=== PATIENT | female | born 1960 | race Caucasian/White ===

== ENCOUNTER → 2017-10-26 10:40 | Outpatient (CLI) | payer OTHER, SELFPAY ==
[2017-10-26 10:57] LABS: Add Manual Diff / Slide Review NO; Basophils Percent Auto 0.8 % (0-2); Eosinophils Percent Auto 1.9 % (2-4); Hemoglobin 13.6 g/dL (12.0-16.0); Lymphocytes Percent Auto 31.5 % (25-40); Mean Corpuscular HGB Conc 33.2 % (30-36); Mean Corpuscular Hemoglobin 30.1 PG (26-34); Mean Corpuscular Volume 90.7 fL (80-100); Monocytes Percent Auto 7.6 % (3-14); Neutrophils Absolute Auto 2900 /uL (3000-5900); Neutrophils Percent Auto 58.2 % (50-75); Platelet Count 238 X10^3/uL (150-400); Red Blood Cell Count 4.52 X10^6/uL (4.0-5.2); Red Cell Distribution Width 13.5 % (11.6-14.8); White Blood Cell Count 4.9 X10^3/uL (4.5-11.0)
[2017-10-26 11:39] LABS: Alanine Aminotransferase 27 IU/L (9-52); Albumin 4.2 g/dL (3.5-5.0); Albumin Globulin Ratio 1.5 (1.0-2.8); Alkaline Phosphatase 64 U/L (38-126); Aspartate Aminotransferase 19 IU/L (14-36); BUN Creatinine Ratio 21.7 (6-22); Bilirubin Total 0.7 mg/dL (0.2-1.3); Blood Urea Nitrogen 13 mg/dL (7-17); Calcium 9.4 mg/dL (8.4-10.2); Carbon Dioxide 29 mmol/L (22-32); Chloride 104 mmol/L (98-107); Cholesterol 216 mg/dL (140-199); Estimated Glomerular Filt Rate > 60.0 mL/min (>60); Globulin 2.8 g/dL (1.7-4.1); Glucose 101 mg/dL (70-100); HDL Cholesterol 64 mg/dL (40-60); HEMOLYSIS 16 (0-50); LDL Cholesterol Calculated 136 mg/dL (<100); Potassium 5.1 mmol/L (3.4-5.1); Sodium 142 mmol/L (137-145); Triglycerides 80 mg/dL (35-150)
[2017-10-26 12:09] LABS: TSH w/ Reflex to FT4 1.38 uIU/mL (0.47-4.68)
== END ==
PROVIDERS: Family Provider Family Medicine; PCP Family Medicine; Visit Provider Family Medicine
DX: Z00.00 Encounter for general adult medical examination without abnormal findings (principal)
CPT/HCPCS: 36415; 80053; 80061; 84443; 85025

== ENCOUNTER → 2017-12-06 11:31 | Outpatient (CLI) | payer OTHER, SELFPAY ==
--- NOTE | 2017-12-06 | DI.MG.S_ITS ---
BILATERAL DIGITAL SCREENING MAMMOGRAM 3D/2D WITH CAD: 12/06/2017 CLINICAL: Routine screening. Comparison is made to exams dated: 10/10/2012 mammogram, 04/20/2012 mammogram, and 10/07/2008 mammogram - [facility]. There are scattered fibroglandular elements in both breasts. Current study was also evaluated with a Computer Aided Detection (CAD) system. There is a focal asymmetry in the right breast central to the nipple anterior depth. There is possible architectural distortion associated with the focal asymmetry. No other significant masses, calcifications, or other findings are seen in either breast. IMPRESSION: INCOMPLETE: NEEDS ADDITIONAL IMAGING EVALUATION The focal asymmetry with possible architectual distortion in the right breast is indeterminate. Additional views with possible ultrasound are recommended. This exam was interpreted at Station ID: [id number]. NOTE: For mammograms, a report in lay terms will be sent to the patient. Approximately 15% of breast malignancies will not be visualized mammographically. In the management of a palpable breast mass, a negative mammogram must not discourage biopsy of a clinically suspicious lesion. Electronically Signed By: Jordan Mariano M.D. ecl/:12/06/2017 19:09:43 letter sent: Additional Imaging Needed ACR BI-RADS Category 0: Incomplete 3340F
== END ==
PROVIDERS: Family Provider Family Medicine; PCP Family Medicine; Visit Provider Family Medicine
DX: Z12.31 Encounter for screening mammogram for malignant neoplasm of breast (principal)
CPT/HCPCS: 77063; 77067

== ENCOUNTER → 2018-01-04 14:23 | Outpatient (CLI) | payer OTHER, SELFPAY ==
--- NOTE | 2018-01-04 14:24 | DI.US.S_ITS ---
ULTRASOUND OF RIGHT BREAST: 01/04/2018 CLINICAL: Patient returns today to evaluate an asymmetry in the right breast. Comparison is made to exams dated: 01/04/2018 mammogram, 12/06/2017 mammogram, 10/10/2012 mammogram, and 04/20/2012 mammogram - [facility]. Real-time and Doppler ultrasound of the right breast were performed. Salcedo scale images of the real-time examination were reviewed. Targeted ultrasound demonstrates a 1.2 x 1.0 x 0.8 cm complex cyst or complex mass in the right breast at 6 o'clock position retroareolar depth with peripheral hypoehoic possibly fluid component and central soft tissue component. There is no vascularity on Doppler imaging. This correlates with the abnormality found on diagnostic mammography. IMPRESSION: SUSPICIOUS OF MALIGNANCY - FOLLOW-UP RECOMMENDED 1.2 cm complex cyst/complex mass in the right breast at 6 o'clock position retroareolar depth is at low suspicion for malignancy. An ultrasound guided biopsy is recommended. These results and recommendations were discussed with the patient at the time of the exam by [facility] Radiologist Dr. Leon Huertas in person. This exam was interpreted at Station ID: [id number]. Electronically Signed By: Jordan Mariano M.D. ecl/:01/05/2018 00:51:05 letter sent: Biopsy Required Ultrasound BI-RADS: 4a Suspicious abnormality - low suspicion for malignancy
--- NOTE | 2018-01-04 14:24 | DI.MG.S_ITS ---
UNILATERAL RIGHT DIGITAL DIAGNOSTIC MAMMOGRAM 3D/2D WITH ADDITIONAL VIEWS: 01/04/2018 CLINICAL: Additional evaluation requested from prior study. Comparison is made to exams dated: 12/06/2017 mammogram, 10/10/2012 mammogram, and 04/20/2012 mammogram - [facility]. There are scattered fibroglandular elements in the right breast. Previously identified approximately 1.0 cm focal asymmetry in the right breast central to the nipple anterior depth on comparison screening mammograms persists with additional views. No other significant masses, calcifications, or other findings are seen in the breast. IMPRESSION: INCOMPLETE: NEEDS ADDITIONAL IMAGING EVALUATION Previously identified focal asymmetry in the right breast central to the nipple anterior depth persists with additional views. A targeted ultrasound is recommended for further evaluation, and will be performed immediately following this exam. This exam was interpreted at Station ID: [id number]. NOTE: For mammograms, a report in lay terms will be sent to the patient. Approximately 15% of breast malignancies will not be visualized mammographically. In the management of a palpable breast mass, a negative mammogram must not discourage biopsy of a clinically suspicious lesion. Electronically Signed By: Jordan Mariano M.D. ecl/:01/05/2018 00:46:09 letter sent: Additional Imaging Needed ACR BI-RADS Category 0: Incomplete 3340F
== END ==
PROVIDERS: PCP Family Medicine; Visit Provider Family Medicine
DX: R92.8 Other abnormal and inconclusive findings on diagnostic imaging of breast (principal); N63.10 Unspecified lump in the right breast, unspecified quadrant
CPT/HCPCS: 76642; 77065; G0279

== ENCOUNTER → 2018-01-23 14:20 | Outpatient (CLI) | payer OTHER, SELFPAY ==
--- NOTE | 2018-01-23 | PATH_ITS ---
Note [facility] Accession Number: [id number] TESTS RESULT FLAG UNITS REF RANGE LAB Clinician Provided Cytology Information No. of containers..01 ThinPrep Vial 01 RIGHT BREAST CYST DIAGNOSIS: 02 RIGHT BREAST CYST NEGATIVE FOR MALIGNANT CELLS. IBNUMEROUS FOAMY HISTIOCYTES AND RARE BENIGN EPITHELIAL CELLS. Pathologist ICD10: 02 N60.01 02 Héctor Bynum MD, Pathologist NPI- [id number] Cris Gee, Development Mechanic ([facility]) 01 0.1 CC, BROWN, CLOUDY /LCS FLAG LEGEND: L-Low Normal,H-High Normal,LL-Alert Low,HH-Alert High <-Panic Low,>-Panic High,A-Abnormal,AA-Critical Abnormal Performed at: 01 =Z [facility] [address], [place] [address] Nitin Shea MD, 02 LCLWA [facility] [address] [place] [id number] James Wu MD, Performed at: 01 [facility] [address], [place], [place] [id number] MD Nitin Shea MD Phone: [phone]
--- NOTE | 2018-01-23 16:06 | DI.US.S_ITS ---
ULTRASOUND GUIDED ASPIRATION RIGHT BREAST WITH POST ULTRASOUND IMAGIN01/23/2018 CLINICAL: Cyst aspiration right breast. Correlation is made to exams dated: 01/04/2018 ultrasound, 01/04/2018 mammogram, and 12/06/2017 mammogram - [facility]. An aspiration was performed for the concerning 0.6 cm x 0.7 cm x 0.8 cm circumscribed oval cyst located in the right breast at 10 o'clock in the retroareolar region. This was described on the previous ultrasound report. The skin was prepped in the usual manner. Local anesthetic was administered to the access site. The abnormality was approached from the lateral aspect. A 25 gauge needle was percutaneously placed into the abnormality under ultrasound guidance. Once the needle was documented to be in the correct location, opaque brown fluid was aspirated. A skin adhesive was applied to the access site. Post procedure ultrasound imaging demonstrates the abnormality to be no longer present. The aspirated fluid was sent for cytological analysis. IMPRESSION: ASPIRATION BENIGN Aspiration of the 0.6 cm x 0.7 cm x 0.8 cm cyst in the right breast in the retroareolar region was successful. Post ultrasound imaging revealed the abnormality to be no longer present. The pathology demonstrates foamy histiocytes and rare epithelial cells. Return to annual mammogram screening schedule is recommended. This exam was interpreted at Station ID: [id number]. emma Jakc M.D., M.D./:01/25/2018 17:07:58
== END ==
PROVIDERS: PCP Family Medicine; Visit Provider Family Medicine
DX: N60.01 Solitary cyst of right breast (principal)
CPT/HCPCS: 10022; 76942

== ENCOUNTER → 2018-04-16 10:06 | Outpatient (CLI) | payer OTHER, SELFPAY ==
[2018-04-16 11:04] LABS: Mean Corpuscular HGB Conc 33.4 % (30-36); Mean Corpuscular Hemoglobin 30.4 PG (26-34); Mean Corpuscular Volume 90.9 fL (80-100); Platelet Count 266 X10^3/uL (150-400); Red Blood Cell Count 4.62 X10^6/uL (4.0-5.2); Red Cell Distribution Width 13.7 % (11.6-14.8); White Blood Cell Count 4.8 X10^3/uL (4.5-11.0)
[2018-04-16 11:26] LABS: Alanine Aminotransferase 27 IU/L (9-52); Albumin 4.4 g/dL (3.5-5.0); Albumin Globulin Ratio 1.6 (1.0-2.8); Alkaline Phosphatase 61 U/L (38-126); Aspartate Aminotransferase 22 IU/L (14-36); BUN Creatinine Ratio 26.7 (6-22); Bilirubin Total 0.4 mg/dL (0.2-1.3); Blood Urea Nitrogen 16 mg/dL (7-17); Calcium 9.4 mg/dL (8.4-10.2); Carbon Dioxide 28 mmol/L (22-32); Chloride 103 mmol/L (98-107); Estimated Glomerular Filt Rate > 60.0 mL/min (>60); Globulin 2.8 g/dL (1.7-4.1); Glucose 85 mg/dL (70-100); HEMOLYSIS < 15 (0-50); Potassium 4.9 mmol/L (3.4-5.1); Sodium 144 mmol/L (137-145); Total Protein 7.2 g/dL (6.3-8.2)
[2018-04-16 13:59] LABS: Neutrophils Absolute Manual 2640 /uL (3000-5900); Total Cells Counted 100
[2018-04-16 14:00] LABS: Anisocytosis 1+
== END ==
PROVIDERS: PCP Family Medicine; Visit Provider Family Medicine
DX: R10.9 Unspecified abdominal pain (principal)
CPT/HCPCS: 36415; 80053; 85025

== ENCOUNTER → 2018-04-20 08:40 | Outpatient (CLI) | payer OTHER, SELFPAY ==
--- NOTE | 2018-04-20 08:40 | DI.CT.S_ITS ---
PROCEDURE: CT KIDNEY URETER BLADDER (KUB) INDICATIONS: Left flank pain with hematuria TECHNIQUE: Noncontrast 5 mm thick sections acquired from the diaphragms to the symphysis. 5 mm thick coronal and sagittal reformats were then performed. For radiation dose reduction, the following was used: automated exposure control, adjustment of mA and/or kV according to patient size. COMPARISON: [facility], CT, KIDNEY/ URETER/BLADDER, 03/17/2017, 13:55. FINDINGS: Image quality: Excellent. Lung bases: Lung bases are clear. Heart size is normal. There is a small hiatal hernia. Urinary system: There is a small urinary stone at the left ureteropelvic junction measuring up to 6 mm with associated mild left hydronephrosis. There is minimal associated perinephric stranding. On the right, there is a punctate nonobstructing renal stone without hydronephrosis. The urinary bladder demonstrates normal wall thickness. There is a dependent stone or cluster of stones in the urinary bladder measuring up to 8 mm in aggregate dimension. Other solid organs: There are a few small hypodense foci within the liver which are too small to characterize but statistically likely represent cysts. These appear similar to the prior study. Pancreas is normal in contours. Spleen is normal in size. No adrenal nodules. Peritoneum and bowel: Unenhanced bowel loops demonstrate normal wall thickness and caliber. No evidence of appendicitis. No free fluid or air. Nodes and vessels: No retroperitoneal or mesenteric adenopathy by size criteria. Aorta and inferior vena cava are normal in caliber. Abdominal wall: No ventral hernias. Pelvis: No free pelvic fluid. The uterus is surgically absent. No inguinal hernias or adenopathy. Bones: No suspicious bony lesions. No vertebral body compression fractures. IMPRESSION: 1. Obstructing 6 mm left urinary stone at the UPJ with mild left hydronephrosis. 2. Punctate nonobstructing right renal stone. No right hydronephrosis. 3. Dependent urinary stones demonstrated in the bladder. Dictated by: Nitin Mccoy M.D. on 04/20/2018 at 9:00 Approved by: Nitin Mccoy M.D. on 04/20/2018 at 9:20
== END ==
PROVIDERS: PCP Family Medicine; Visit Provider Family Medicine
DX: N13.2 Hydronephrosis with renal and ureteral calculous obstruction (principal); N21.0 Calculus in bladder; N20.0 Calculus of kidney; R31.9 Hematuria, unspecified; R10.9 Unspecified abdominal pain
CPT/HCPCS: 74176

== ENCOUNTER → 2018-06-07 09:24 | Outpatient (CLI) | payer OTHER, SELFPAY ==
--- NOTE | 2018-06-07 | DI.CT.S_ITS ---
PROCEDURE: CT KIDNEY URETER BLADDER (KUB) INDICATIONS: LEFT LOWER QUAD PAIN TECHNIQUE: Noncontrast 5 mm thick sections acquired from the diaphragms to the symphysis. 5 mm thick coronal and sagittal reformats were then performed. For radiation dose reduction, the following was used: automated exposure control, adjustment of mA and/or kV according to patient size. COMPARISON: [facility], CT, CT KIDNEY URETER BLADDER (KUB), 04/20/2018, 8:40. [facility], CT, KIDNEY/ URETER/BLADDER, 04/20/2015, 11:39. [facility], CT, KIDNEY/ URETER/BLADDER, 03/17/2017, 13:55. FINDINGS: Image quality: Excellent. Lung bases: Lung bases are clear. Heart size is normal. A small hiatal hernia is incidentally noted. Urinary system: Bilateral nonobstructing kidney stones are seen. The largest stone on the left side measures 6 mm. The largest stone on the right measures 2 mm. Both kidneys are normal in size. No hydronephrosis or perinephric fat stranding. Both ureters appear non-dilated throughout their expected courses. Bladder wall thickness is normal; no calcified bladder stones. Other solid organs: Liver is normal in size. Gallbladder demonstrates gas containing gallstones within its lumen, as on series 2 image 28. Pancreas is normal in contours. Spleen is normal in size. No adrenal nodules. Peritoneum and bowel: Unenhanced bowel loops demonstrate normal wall thickness and caliber. No free fluid or air. Incidental note is made of a normal-appearing appendix. In this patient with this given history, scrutiny is given to the sigmoid colon. Within the sigmoid colon, minimal sigmoid diverticulosis is seen. Negative for diverticulitis. Nodes and vessels: No retroperitoneal or mesenteric adenopathy by size criteria. Aorta and inferior vena cava are normal in caliber. Atherosclerotic calcification is noted. Abdominal wall: A mild periumbilical hernia is seen, containing fat. Pelvis: No free pelvic fluid. No inguinal hernias or adenopathy. This patient is status post hysterectomy. No adnexal masses are seen. Bones: No suspicious bony lesions. No vertebral body compression fractures. IMPRESSION: Minimal sigmoid diverticulosis, without findings of diverticulitis. Nonobstructing bilateral renal stones. No ureteral stones or hydronephrosis can be seen. Incidental note is made of: Small hiatal hernia Gallstones Fat-containing periumbilical hernia Hysterectomy Dictated by: Julio Mckeon M.D. on 06/07/2018 at 9:36 Approved by: Julio Mckeon M.D. on 06/07/2018 at 9:40
== END ==
PROVIDERS: Family Provider Urology; PCP Family Medicine; Visit Provider Urology
DX: R10.32 Left lower quadrant pain (principal); N20.0 Calculus of kidney; K44.9 Diaphragmatic hernia without obstruction or gangrene; K80.80 Other cholelithiasis without obstruction; K42.9 Umbilical hernia without obstruction or gangrene
CPT/HCPCS: 74176

== ENCOUNTER → 2019-03-11 09:22 | Outpatient (CLI) | payer OTHER, SELFPAY ==
--- NOTE | 2019-03-11 09:30 | DI.CT.S_ITS ---
PROCEDURE: CT ABDOMEN PELVIS WO CON INDICATIONS: LEFT FLANK PAIN TECHNIQUE: Noncontrast 5 mm thick sections acquired from the diaphragms to the symphysis. 5 mm thick coronal and sagittal reformats were then performed. For radiation dose reduction, the following was used: automated exposure control, adjustment of mA and/or kV according to patient size. COMPARISON: CT KUB 06/07/2018, 04/20/2018, 04/20/2015. FINDINGS: Image quality: Excellent. Lung bases: Lung bases are clear. Heart size is normal. Small hiatal hernia. Urinary system: Both kidneys are normal in size. Punctate nonobstructive calculus in the mid right kidney, unchanged. Previously seen small calculus at the inferior pole of the left kidney is longer present. No hydronephrosis or perinephric fat stranding. Bilateral extra renal pelvis. Both ureters appear non-dilated throughout their expected courses. Bladder wall thickness is normal. Similar-appearing cystocele. Calcification at the posterior inferior bladder is unchanged since at least April 2018. This was more rounded in appearance on the 2014 CT. Other solid organs: Liver is normal in size. Gallbladder nondistended. Probable noncalcified gallstones. Pancreas is normal in contours. Spleen is normal in size. No adrenal nodules. Peritoneum and bowel: Unenhanced bowel loops demonstrate normal wall thickness and caliber. No free fluid or air. Nodes and vessels: No retroperitoneal or mesenteric adenopathy by size criteria. Aorta and inferior vena cava are normal in caliber. Abdominal wall: No ventral hernias. Pelvis: No free pelvic fluid. No inguinal hernias or adenopathy. Bones: No suspicious bony lesions. No vertebral body compression fractures. IMPRESSION: 1. No obstructing renal stone. 2. Previously seen small left kidney stone is no longer present. 3. Punctate nonobstructing stone in the mid right kidney. 4. Similar-appearing calcification in the bladder and cystocele. 5. Probable noncalcified gallstones. Dictated by: Luis Daniel Jauregui M.D. on 03/11/2019 at 15:04 Approved by: Luis Daniel Jauregui M.D. on 03/11/2019 at 15:13
== END ==
PROVIDERS: Family Provider Urology; PCP Family Medicine; Visit Provider Family Medicine
DX: R10.9 Unspecified abdominal pain (principal); N20.0 Calculus of kidney; N21.0 Calculus in bladder
CPT/HCPCS: 36415; 74176; 80048; 81003; 81015; 87077; 87086; 87147

== ENCOUNTER → 2019-03-11 14:09 | Outpatient (CLI) | payer OTHER, SELFPAY ==
[2019-03-11 14:59] LABS: BUN Creatinine Ratio 21.7 (6-22); Blood Urea Nitrogen 13 mg/dL (7-17); Calcium 9.4 mg/dL (8.4-10.2); Carbon Dioxide 29 mmol/L (22-32); Chloride 103 mmol/L (98-107); Estimated Glomerular Filt Rate > 60.0 mL/min (>60); Glucose 124 mg/dL (70-100); HEMOLYSIS < 15 (0-50); Sodium 141 mmol/L (137-145)
[2019-03-11 15:13] LABS: Appearance Urine UA CLEAR; Bilirubin Urine UA NEGATIVE (NEGATIVE); Color Urine UA YELLOW; Glucose Urine UA NEGATIVE (Negative); Ketones Urine UA NEGATIVE (NEGATIVE); Leukocyte Esterase Urine UA TRACE (NEGATIVE); Nitrite Urine UA NEGATIVE (Negative); Occult Blood Urine UA NEGATIVE (Negative); Protein Urine UA NEGATIVE (Negative); Specific Gravity Urine UA <=1.005 (1.000-1.035); Urobilinogen Urine UA 0.2 E.U./dL (0.2)
[2019-03-11 15:23] LABS: RBC Urine None Seen (0-5/HPF)
[2019-03-11 15:40] LABS: Bacteria Urine Occasional (0-1); Culture Indicated Urine Specimen Cultured; Squamous Epithelial Cell Urine 0-1 /HPF (0-5/HPF); WBC Urine 1-5/HPF (0-5/HPF)
== END ==
PROVIDERS: PCP Family Medicine; Visit Provider Family Medicine
DX: N20.0 Calculus of kidney (principal); N21.0 Calculus in bladder
CPT/HCPCS: 36415; 80048; 81003; 81015; 87086

== ENCOUNTER 2019-10-19 14:17 | Emergency (ER) | payer OTHER, SELFPAY ==
[2019-10-19 14:36] VITALS: BP 162/72; PULSE 63; RESP 18; TEMP 36.6; O2SAT 98; BMI 23.1
[2019-10-19 15:06] LABS: Appearance Urine UA SL CLOUDY; Bilirubin Urine UA NEGATIVE (NEGATIVE); Color Urine UA ORANGE; Glucose Urine UA TRACE g/dL (Negative); Ketones Urine UA TRACE (NEGATIVE); Leukocyte Esterase Urine UA 2+ (NEGATIVE); Nitrite Urine UA POSITIVE (Negative); Occult Blood Urine UA 3+ (Negative); Protein Urine UA 1+ (Negative); Specific Gravity Urine UA 1.025 (1.000-1.035)
[2019-10-19 15:11] LABS: Amorphous Sediment Urine 1+; Bacteria Urine Few (2-10); Mucus Urine 1+ (Negative); RBC Urine 1-5/HPF (0-5/HPF); Squamous Epithelial Cell Urine 0-1 /HPF (0-5/HPF); WBC Urine 10-30/HPF (0-5/HPF)
[2019-10-19 15:12] LABS: Culture Indicated Urine Specimen Cultured
--- NOTE | 2019-10-19 16:23 | ED.FEMALEGU ---
HPI - Female Genitourinary <ODIN Batista - Last Filed: 10/19/19 18:53> General Chief complaint: Urogenital-Female Stated complaint: states possible kidney stone and uti Time Seen by Provider: 10/19/19 16:22 Source: patient Mode of arrival: Ambulatory Limitations: no limitations History of Present Illness HPI Narrative: This is a 59-year-old female, nonsmoker, who presents to ED for an antibiotic medication for urinary symptoms. Patient reports she just completed antibiotic medication about 2 weeks ago for UTI symptoms but her symptoms has not resolved. At that time, patient appears to received Cipro. Patient reports subjective fever, chills, nausea, , left flank pain but no vomiting or hematuria. Patient reports her UTI symptoms are related to kidney stones. She has history of lithotripsy in the past. Also she reports has bladder stone. Reports unable to recall recent imaging test. Patient started taking azo old since last night which helps with her symptoms and had taken Aleve at home for pain this morning. Patient also has surgery for urine prolapse and has urologist in [place]. Unable to find recent urine test results in EMR. Last CT scan was done in March 2019. Previous urine culture indicates strep group B with Keflex at that time with good result. Related Data Previous Rx's Medication Instructions Recorded cephalexin [Keflex] 500 mg PO BID 7 Days #14 cap 10/19/19 Allergies Allergy/AdvReac Type Severity Reaction Status Date / Time amoxicillin [AMOXICILLIN] Allergy Mild RASH Verified 10/19/19 14:40 azithromycin [AZITHROMYCIN] Allergy Mild STOMACH Verified 10/19/19 14:40 PAIN hydromorphone [HYDROMORPHONE] Allergy Mild N/V Verified 10/19/19 14:40 meperidine [MEPERIDINE] Allergy Mild N/V Verified 10/19/19 14:40 nitrofurantoin Allergy Mild HEADACHE Verified 10/19/19 14:40 [From MACROBID] FLU LIKE SYMPTOMS omeprazole [OMEPRAZOLE] Allergy Mild DIARRHEA Verified 10/19/19 14:40 Review of Systems <ODIN Batista - Last Filed: 10/19/19 18:53> Review of Systems Narrative: General: See HPI HEENT: Denies sinus pain, ear pain, sore throat, difficulty swallowing, dizziness. Respiratory: Denies dyspnea, cough, wheezing, hemoptysis, sputum. Cardiovascular: Denies chest pain, palpitations, orthopnea, edema. Gastrointestinal: Denies nausea, vomiting, abdominal pain, diarrhea, constipation, melena. : See HPI Musculoskeletal: Denies weakness, joint pain or bony pain. Skin: Denies rash, skin lesions, or other. Neurologic: Denies weakness, headache, numbness, change in speech, confusion, seizures, incoordination. Psychiatric: No concerning psychosocial issues. 12-point review of systems is negative except for those stated above. Patient History <ODIN Batista - Last Filed: 10/19/19 18:53> Medical History Bladder stones (Resolved) Chicken pox (Resolved) Chlamydia (Resolved 1980) Chronic headaches (Chronic) Frequent UTI (Resolved 2009) GERD (gastroesophageal reflux disease) (Chronic 2013) Hayfever (Chronic) Kidney stones (Resolved) Malaria (Resolved 1971) Measles (Resolved) Migraines (Chronic) Mumps (Resolved) Pelvic relaxation (Resolved) RLS (restless legs syndrome) (Resolved) Rubella (Resolved) Seizures (Chronic) Surgical History Anesthesia (Resolved) History of bladder surgery (Resolved 2011) History of lithotripsy (Resolved 2007) Status post appendectomy (Resolved 1989) Status post breast reduction (Resolved 1991) Status post hysterectomy with oophorectomy (Resolved ~2008) Family History Father Heart disease Mental health problem Mother Age: 89 Osteoporosis COPD (chronic obstructive pulmonary disease) Arthritis Sister Age: 67 Heart disease Mental health disorder Grandmother Lung cancer alcohol intake frequency: a few times a week Substance Use Type: does not use Exam <ODIN Batista - Last Filed: 10/19/19 18:53> Narrative Exam Narrative: GEN: Alert, oriented x 3, well appearing and nourished, and in no acute distress. Head: Normal cephalic, atraumatic. No scalp or temporal tenderness, palpable mass or rash. EYES: Pupils are equal, round, and reactive to light and accommodation. Extraocular muscles are intact bilaterally. There is no subconjunctival hemorrhage, exudate and sclera non-icteric. ENT: Hearing grossly intact. Nose without bleeding, purulent discharge or deviation. Facial sinuses nontender to palpate. Mucous membrane moist, no mucosal lesion. Throat without erythema, tonsillar hypertrophy or exudate. Uvula in midline, airway patent. Neck: Trachea in midline. No JVD, non-tender without lymphadenopathy. No masses or thyroid megaly. Supple, non-tender and no meningeal signs. CARDIAC: Normal regular rate and rhythm without murmurs, gallops, or rubs. No chest wall tenderness. No peripheral edema, cyanosis or pallor. Capillary refill is less than 2 seconds. RESPIRATORY: Lungs are clear to auscultate bilaterally. No cough, wheezes, rales, or rhonchi. No stridor, respiratory distress, increase work of breathing, or accessary muscle used. ABD: Abdomen soft, nontender and non-distended. No guarding or rebound tenderness to palpate. Bowel sounds are normal in all 4 quadrants. There is no palpable masses or organomegaly. EXT: Full painless ROM of all extremities with no loss of sensation, strength, effusion or edema. SKIN: Warm, dry, normal color for patient. No erythema, lesions or rash over visible areas. BACK: Nontender without deformity or crepitance. Right costovertebral angle mild tenderness to palpate. NEUROLOGICAL: Alert and oriented to place, time and person. Sensation and motor function intact bilaterally. No facial droops, dysphasia. PSYCHIATRIC: Good judgement and reason, without hallucinations, abnormal affect or abnormal behaviors during the examination. Initial Vital Signs Initial Vital Signs: Vital Signs Temperature 97.9 F 10/19/19 14:36 Pulse Rate 63 10/19/19 14:36 Respiratory Rate 18 10/19/19 14:36 Blood Pressure 162/72 H 10/19/19 14:36 Pulse Oximetry 98 10/19/19 14:36 <Oli Mistry MD - Last Filed: 10/20/19 07:47> Initial Vital Signs Initial Vital Signs: Vital Signs Temperature 97.9 F 10/19/19 14:36 Pulse Rate 63 10/19/19 14:36 Respiratory Rate 18 10/19/19 14:36 Blood Pressure 162/72 H 10/19/19 14:36 Pulse Oximetry 98 10/19/19 14:36 Scores <Felipe Casey-Oras, REHAB CONSULTANT - Last Filed: 10/19/19 18:53> GCS [place] coma scale eye opening: Spontaneous Lucita coma scale verbal response: Orientated [place] coma scale motor response: Obey commands [place] coma scale total score: 15 Course <ODIN Batista - Last Filed: 10/19/19 18:53> Orders Ordered: Discontinued Medications Cefazolin Sodium (Keflex 250 Mg Prepack) 1 bottle MISC SEEINSTR ONE Stop: 10/19/19 18:24 Last Admin: 10/19/19 18:40 Dose: 1 pack Documented by: SAMEER Cephalexin HCl (Keflex) 500 mg PO NOW ONE Stop: 10/19/19 18:24 Last Admin: 10/19/19 18:40 Dose: 500 mg Documented by: SAMEER Vital Signs Vital signs: Vital Signs - 8 hr 10/19/19 14:36 10/19/19 17:57 Temperature 97.9 F Pulse Rate 63 64 Respiratory Rate 18 Blood Pressure 162/72 H Blood Pressure [Right Arm] 125/81 Pulse Oximetry 98 99 <Oli Mistry MD - Last Filed: 10/20/19 07:47> Orders Ordered: Discontinued Medications Cefazolin Sodium (Keflex 250 Mg Prepack) 1 bottle MISC SEEINSTR ONE Stop: 10/19/19 18:24 Last Admin: 10/19/19 18:40 Dose: 1 pack Documented by: SAMEER Cephalexin HCl (Keflex) 500 mg PO NOW ONE Stop: 10/19/19 18:24 Last Admin: 10/19/19 18:40 Dose: 500 mg Documented by: SAMEER Vital Signs Vital signs: Vital Signs - 8 hr 10/19/19 14:36 10/19/19 17:57 Temperature 97.9 F Pulse Rate 63 64 Respiratory Rate 18 Blood Pressure 162/72 H Blood Pressure [Right Arm] 125/81 Pulse Oximetry 98 99 MDM - Female Genitourinary <ODIN Batista - Last Filed: 10/19/19 18:53> Differential Diagnosis Differential diagnosis: Likely urinary tract infection and other (Kidney stone, obstructed kidney stone and infection) Medical Records Attestation: I reviewed the patient's medical records. Lab Data Attestation: I reviewed the patient's lab results. Result diagrams: 10/19/19 16:55 10/19/19 16:55 Labs: Lab Results 10/19/19 10/19/19 10/19/19 Range/Units 14:55 16:55 16:55 WBC 5.3 (4.5-11.0) X10^3/uL RBC 4.32 (4.0-5.2) X10^6/uL Hgb 13.2 (12.0-16.0) g/dL Hct 39.9 (36-46) % MCV 92.3 (80-100) fL MCH 30.4 (26-34) PG MCHC 33.0 (30-36) % RDW 14.2 (11.6-14.8) % Plt Count 226 (150-400) X10^3/uL Neut % (Auto) 49.0 L (50-75) % Lymph % (Auto) 39.2 (25-40) % [place] % (Auto) 9.6 (3-14) % Eos % (Auto) 1.4 L (2-4) % Baso % (Auto) 0.8 (0-2) % Neut # (Auto) 2600 (6560-3257) /uL Lymph # (Auto) 2100 (5375-1060) /uL [place] # (Auto) 500 (0-900) /uL Eos # (Auto) 100 (0-450) /uL Baso # (Auto) 0 (0-100) /uL Sodium 140 (137-145) mmol/L Potassium 4.4 (3.4-5.1) mmol/L Chloride 106 (98-107) mmol/L Carbon Dioxide 27 (22-32) mmol/L BUN 15 (7-17) mg/dL Creatinine 0.56 (0.52-1.04) mg/dL Estimated GFR > 60.0 (>60) mL/min BUN/Creatinine Ratio 26.8 H (6-22) Glucose 118 H (80-110) mg/dL Calcium 9.6 (8.4-10.2) mg/dL Urine Color [place] Urine Appearance Sl cloudy Urine pH 5.0 (4.5-8.0) Ur Specific [place] 1.025 (1.000-1.035) Urine Protein 1+ H (Negative) Urine Glucose (UA) Trace H (Negative) g/dL Urine Ketones Trace H (NEGATIVE) Urine Occult Blood 3+ H (Negative) Urine Nitrate Positive H (Negative) Urine Bilirubin Negative (NEGATIVE) Urine Urobilinogen 1.0 (0.2) E.U./dL Ur Leukocyte Esterase 2+ H (NEGATIVE) Urine RBC 1-5/hpf (0-5/HPF) Urine WBC 10-30/hpf H (0-5/HPF) Ur Squamous Epith Cells 0-1 /hpf (0-5/HPF) Amorphous Sediment 1+ Urine Bacteria Few (2-10) H (None) Urine Mucus 1+ H (Negative) Ur Culture Indicated? Specimen cultured Imaging Data CT- KUB: Radiologist's Impression: [address] [address] [address] Scan Report Signed Patient: Graciela Pierre WMR#: [id number] : 9Acct:[id number] Age/Sex: 59 / FDate of Service: 10/19/19 Loc: ED Accession Number: [id number] Procedure: CT kidney ureter bladder (KUB) Ordering Provider: Felipe Broussard PROCEDURE: CT KIDNEY URETER BLADDER (KUB) INDICATIONS: UTI, hx of stones, fever, chills, left flank pain TECHNIQUE: Noncontrast 5 mm thick sections acquired from the diaphragms to the symphysis. 5 mm thick coronal and sagittal reformats were then performed. For radiation dose reduction, the following was used: automated exposure control, adjustment of mA and/or kV according to patient size. COMPARISON: [facility], CT, CT KIDNEY URETER BLADDER (KUB), 06/07/2018, 9:32. [facility], CT, CT KIDNEY URETER BLADDER (KUB), 04/20/2018, 8:40. [facility], CT, CT ABDOMEN PELVIS WO CON, 03/11/2019, 10:23. FINDINGS: Image quality: Excellent. Lung bases: Lung bases are clear. Heart size is normal. A small hiatal hernia is incidentally noted. Urinary system: Both kidneys are normal in size. There is a nonobstructing 2 mm stone seen on the right side. No left-sided kidney stones. No hydronephrosis or perinephric fat stranding. Both ureters appear non-dilated throughout their expected courses. Bladder wall thickness is normal. Irregular bladder stone is seen, which is slightly more prominent than in 2009. A bladder stone measures up to 1 cm. Pelvic phleboliths are incidentally noted. A cystocele is seen. Other solid organs: Liver is normal in size. Gallbladder wall does not appear thickened. Pancreas is normal in contours. Spleen is normal in size. No adrenal nodules. Peritoneum and bowel: Unenhanced bowel loops demonstrate normal wall thickness and caliber. No free fluid or air. Minimal sigmoid diverticulosis is seen. No diverticulitis. Nodes and vessels: No retroperitoneal or mesenteric adenopathy by size criteria. Aorta and inferior vena cava are normal in caliber. Abdominal wall: No ventral hernias. Pelvis: No free pelvic fluid. No inguinal hernias or adenopathy. This patient is status post hysterectomy. No adnexal masses are seen. Bones: No suspicious bony lesions. No vertebral body compression fractures. IMPRESSION: No left-sided stones or hydronephrosis can be seen. Nonobstructing right-sided kidney stone. 1 cm calcified bladder stone seen. Incidental note is made of: Small hiatal hernia Minimal sigmoid diverticulosis. Hysterectomy Cystocele Dictated by: Julio Mckeon M.D. on 10/19/2019 at 16:29 Approved by: Julio Mckeon M.D. on 10/19/2019 at 16:33 MDM Narrative Medical decision making narrative: This is a 59-year-old female reports frequent UTI associated with kidney stones. Afebrile today. Patient reports subjective fever, chills, flank pain, nausea. UA indicates positive urine nitrate, urine leukocyte esterase, 3+ blood, trace ketones and glucose with protein. Urine culture is pending. Patient recently completed Cipro therapy for UTI appears to be she feels for outpatient treatment with antibiotic medication. Since patient has history of kidney stone symptoms for possible pyelonephritis, field UTI, labs and CT test were done. CT shows nonobstructing small kidney stone of 2 mm on right side with 1 cm of bladder stone she appears to be irregular and more prominent since last time. Lab tests were unremarkable without leukocytosis and normal kidney function. Mildly elevated BUN/creatinine ratio. Patient provided with 1st dose of Keflex while in ED and discharged to home with prepack and prescription to complete 7 day course b.i.d. dose. Patient declined Zofran. Patient advised to hydrate adequately and return precautions were discussed. She has an follow-up appointment with Dr. Ramires on Monday. Patient verbalized understanding and in agreement with the treatment plan. <Oli Mistry MD - Last Filed: 10/20/19 07:47> Lab Data Labs: Lab Results 10/19/19 10/19/19 10/19/19 Range/Units 14:55 16:55 16:55 WBC 5.3 (4.5-11.0) X10^3/uL RBC 4.32 (4.0-5.2) X10^6/uL Hgb 13.2 (12.0-16.0) g/dL Hct 39.9 (36-46) % MCV 92.3 (80-100) fL MCH 30.4 (26-34) PG MCHC 33.0 (30-36) % RDW 14.2 (11.6-14.8) % Plt Count 226 (150-400) X10^3/uL Neut % (Auto) 49.0 L (50-75) % Lymph % (Auto) 39.2 (25-40) % [place] % (Auto) 9.6 (3-14) % Eos % (Auto) 1.4 L (2-4) % Baso % (Auto) 0.8 (0-2) % Neut # (Auto) 2600 (9515-7390) /uL Lymph # (Auto) 2100 (2863-8381) /uL [place] # (Auto) 500 (0-900) /uL Eos # (Auto) 100 (0-450) /uL Baso # (Auto) 0 (0-100) /uL Sodium 140 (137-145) mmol/L Potassium 4.4 (3.4-5.1) mmol/L Chloride 106 (98-107) mmol/L Carbon Dioxide 27 (22-32) mmol/L BUN 15 (7-17) mg/dL Creatinine 0.56 (0.52-1.04) mg/dL Estimated GFR > 60.0 (>60) mL/min BUN/Creatinine Ratio 26.8 H (6-22) Glucose 118 H (80-110) mg/dL Calcium 9.6 (8.4-10.2) mg/dL Urine Color [place] Urine Appearance Sl cloudy Urine pH 5.0 (4.5-8.0) Ur Specific [place] 1.025 (1.000-1.035) Urine Protein 1+ H (Negative) Urine Glucose (UA) Trace H (Negative) g/dL Urine Ketones Trace H (NEGATIVE) Urine Occult Blood 3+ H (Negative) Urine Nitrate Positive H (Negative) Urine Bilirubin Negative (NEGATIVE) Urine Urobilinogen 1.0 (0.2) E.U./dL Ur Leukocyte Esterase 2+ H (NEGATIVE) Urine RBC 1-5/hpf (0-5/HPF) Urine WBC 10-30/hpf H (0-5/HPF) Ur Squamous Epith Cells 0-1 /hpf (0-5/HPF) Amorphous Sediment 1+ Urine Bacteria Few (2-10) H (None) Urine Mucus 1+ H (Negative) Ur Culture Indicated? Specimen cultured Discharge Plan Departure Patient Disposition: Home Clinical Impression: Kidney infection, Bladder stone, Kidney stone Discharge Date/Time: 10/19/19 18:48 Instructions: DI for Kidney Infection, DI for Kidney Stones Activity Restrictions/Additional Instructions: You have been diagnosed with [failed UTI treatment, kidney infection and nonobstructing 2 mm right-sided kidney stone with 1 cm irregular shaped bladder stone according to CT test. Blood tests are unremarkable. Urine is pending for culture. You were given 1st dose of antibiotic medication Keflex which worked well for you in the past in ED. please take twice a day for next 7 days.]. What to do: *Take your medications as directed. You can take [id number] Tylenol and or Motrin as needed for discomfort or fever. Tylenol 650-1000 mg up to 3 to 4 times a day as needed for pain and fever. Aleve up to 2 tabs twice a day as needed for pain or fever with food. *Follow up with your primary care provider in 2-3 days, call for an appointment. Let them know you were seen in the ED and that we asked you to be seen in follow up. *Return to ED if you have any new, worsening, or concerning symptoms, such as [fever, unable to tolerate fluids, increasing pain, chest pain, breathing difficulty, dark urine with blood, unable to void or any acute concerns]. Prescriptions: New cephalexin [Keflex] 500 mg capsule 500 mg PO BID 7 Days Qty: 14 RF: 0 Referrals: Mckay Ramires MD [Primary Care Provider] -
[2019-10-19 17:08] LABS: Add Manual Diff / Slide Review NO; Basophils Absolute Auto 0 /uL (0-100); Basophils Percent Auto 0.8 % (0-2); Eosinophils Absolute Auto 100 /uL (0-450); Eosinophils Percent Auto 1.4 % (2-4); Hematocrit 39.9 % (36-46); Hemoglobin 13.2 g/dL (12.0-16.0); Lymphocytes Absolute Auto 2100 /uL (1100-4500); Lymphocytes Percent Auto 39.2 % (25-40); Mean Corpuscular Hemoglobin 30.4 PG (26-34); Mean Corpuscular Volume 92.3 fL (80-100); Monocytes Absolute Auto 500 /uL (0-900); Monocytes Percent Auto 9.6 % (3-14); Neutrophils Absolute Auto 2600 /uL (1500-7000); Platelet Count 226 X10^3/uL (150-400); Red Blood Cell Count 4.32 X10^6/uL (4.0-5.2); Red Cell Distribution Width 14.2 % (11.6-14.8); White Blood Cell Count 5.3 X10^3/uL (4.5-11.0)
--- NOTE | 2019-10-19 17:11 | DI.CT.S_ITS ---
PROCEDURE: CT KIDNEY URETER BLADDER (KUB) INDICATIONS: UTI, hx of stones, fever, chills, left flank pain TECHNIQUE: Noncontrast 5 mm thick sections acquired from the diaphragms to the symphysis. 5 mm thick coronal and sagittal reformats were then performed. For radiation dose reduction, the following was used: automated exposure control, adjustment of mA and/or kV according to patient size. COMPARISON: [facility], CT, CT KIDNEY URETER BLADDER (KUB), 06/07/2018, 9:32. [facility], CT, CT KIDNEY URETER BLADDER (KUB), 04/20/2018, 8:40. [facility], CT, CT ABDOMEN PELVIS WO CON, 03/11/2019, 10:23. FINDINGS: Image quality: Excellent. Lung bases: Lung bases are clear. Heart size is normal. A small hiatal hernia is incidentally noted. Urinary system: Both kidneys are normal in size. There is a nonobstructing 2 mm stone seen on the right side. No left-sided kidney stones. No hydronephrosis or perinephric fat stranding. Both ureters appear non-dilated throughout their expected courses. Bladder wall thickness is normal. Irregular bladder stone is seen, which is slightly more prominent than in 2009. A bladder stone measures up to 1 cm. Pelvic phleboliths are incidentally noted. A cystocele is seen. Other solid organs: Liver is normal in size. Gallbladder wall does not appear thickened. Pancreas is normal in contours. Spleen is normal in size. No adrenal nodules. Peritoneum and bowel: Unenhanced bowel loops demonstrate normal wall thickness and caliber. No free fluid or air. Minimal sigmoid diverticulosis is seen. No diverticulitis. Nodes and vessels: No retroperitoneal or mesenteric adenopathy by size criteria. Aorta and inferior vena cava are normal in caliber. Abdominal wall: No ventral hernias. Pelvis: No free pelvic fluid. No inguinal hernias or adenopathy. This patient is status post hysterectomy. No adnexal masses are seen. Bones: No suspicious bony lesions. No vertebral body compression fractures. IMPRESSION: No left-sided stones or hydronephrosis can be seen. Nonobstructing right-sided kidney stone. 1 cm calcified bladder stone seen. Incidental note is made of: Small hiatal hernia Minimal sigmoid diverticulosis. Hysterectomy Cystocele Dictated by: Julio Mckeon M.D. on 10/19/2019 at 16:29 Approved by: Julio Mckeon M.D. on 10/19/2019 at 16:33
[2019-10-19 17:18] LABS: BUN Creatinine Ratio 26.8 (6-22); Blood Urea Nitrogen 15 mg/dL (7-17); Calcium 9.6 mg/dL (8.4-10.2); Carbon Dioxide 27 mmol/L (22-32); Chloride 106 mmol/L (98-107); Estimated Glomerular Filt Rate > 60.0 mL/min (>60); Glucose 118 mg/dL (80-110); HEMOLYSIS < 15 (0-50); Potassium 4.4 mmol/L (3.4-5.1); Sodium 140 mmol/L (137-145)
[2019-10-19 17:57] VITALS: BP 125/81; PULSE 64; O2SAT 99
[2019-10-19] MEDS: cephALEXin 250 MG PREPACK 1 BOTTLE MISC (18:40)
[2019-10-19] MEDS: cephALEXin 250 MG CAPSULE 500 MG PO (18:40)
== END 2019-10-19 18:48 | disposition home or self-care (01) ==
PROVIDERS: Emergency Medicine; Emergency Provider Nurse Practitioner Family; PCP Family Medicine
DX: N20.0 Calculus of kidney (principal); Z87.442 Personal history of urinary calculi
CPT/HCPCS: 36415; 74176; 80048; 81001; 85025; 87077; 87086; 87147; 87186; 99283; 99284

== ENCOUNTER → 2019-11-23 10:52 | Outpatient (CLI) | payer OTHER, SELFPAY | PROVIDERS: PCP Family Medicine; Visit Provider Physician Assistant | DX: R30.0 Dysuria (principal) | CPT/HCPCS: 87086; 87186 ==

== ENCOUNTER → 2020-01-24 10:36 | Outpatient (CLI) | payer OTHER, SELFPAY ==
--- NOTE | 2020-01-24 10:41 | DI.RAD.S_ITS ---
PROCEDURE: XR KNEE RT 3V INDICATIONS: chronic right knee pain TECHNIQUE: 3 views of the knee were acquired. COMPARISON: None. FINDINGS: Bones: No fractures or dislocations. No suspicious bony lesions. Mild narrowing of the medial compartment Soft tissues: No joint effusion. No suspicious soft tissue calcifications. IMPRESSION: Mild narrowing of the medial compartment indicating mild osteoarthritis in that area, otherwise normal for age. Dictated by: Arjun Reyes M.D. on 01/24/2020 at 11:30 Approved by: Arjun Reyes M.D. on 01/24/2020 at 11:30
[2020-01-24 12:16] LABS: Cholesterol 234 mg/dL (140-199); HDL Cholesterol 56 mg/dL (40-60); LDL Cholesterol Calculated 164 mg/dL (<100); Triglycerides 72 mg/dL (35-150)
== END ==
PROVIDERS: Nurse Practitioner Family; PCP Family Medicine; Referring Provider Family Medicine; Visit Provider Family Medicine
DX: G89.29 Other chronic pain (principal); M25.561 Pain in right knee; E78.2 Mixed hyperlipidemia
CPT/HCPCS: 36415; 73562; 80061

== ENCOUNTER → 2020-04-08 13:59 | Outpatient (CLI) | payer OTHER, SELFPAY ==
[2020-04-08 14:44] LABS: Appearance Urine UA SL CLOUDY; Bilirubin Urine UA NEGATIVE (NEGATIVE); Color Urine UA YELLOW; Glucose Urine UA NEGATIVE (Negative); Ketones Urine UA TRACE (NEGATIVE); Leukocyte Esterase Urine UA 1+ (NEGATIVE); Nitrite Urine UA POSITIVE (Negative); Occult Blood Urine UA 2+ (Negative); Protein Urine UA NEGATIVE (Negative); Specific Gravity Urine UA >=1.030 (1.000-1.035); Urobilinogen Urine UA 0.2 E.U./dL (0.2)
[2020-04-08 15:14] LABS: Amorphous Sediment Urine 1+; Bacteria Urine Many (>30); Mucus Urine 1+ (Negative); RBC Urine 1-5/HPF (0-5/HPF); Squamous Epithelial Cell Urine 0-1 /HPF (0-5/HPF); WBC Urine 30-100/HPF (0-5/HPF)
[2020-04-08 15:15] LABS: Culture Indicated Urine Specimen Cultured
== END ==
PROVIDERS: PCP Family Medicine; Referring Provider Family Medicine; Visit Provider Family Medicine
DX: N39.0 Urinary tract infection, site not specified (principal)
CPT/HCPCS: 81003; 81015; 87077; 87086; 87147; 87186

== ENCOUNTER → 2020-05-20 13:16 | Outpatient (CLI) | payer OTHER, SELFPAY ==
[2020-05-20 14:03] LABS: Appearance Urine UA SL CLOUDY; Bilirubin Urine UA NEGATIVE (NEGATIVE); Color Urine UA YELLOW; Glucose Urine UA NEGATIVE (Negative); Ketones Urine UA NEGATIVE (NEGATIVE); Leukocyte Esterase Urine UA 2+ (NEGATIVE); Nitrite Urine UA NEGATIVE (Negative); Occult Blood Urine UA TRACE-LYSED (Negative); Protein Urine UA NEGATIVE (Negative); Urobilinogen Urine UA 0.2 E.U./dL (0.2)
[2020-05-20 14:19] LABS: Amorphous Sediment Urine 1+; Bacteria Urine Moderate (10-30); Culture Indicated Urine Specimen Cultured; RBC Urine None Seen (0-5/HPF); WBC Urine 10-30/HPF (0-5/HPF)
== END ==
PROVIDERS: PCP Family Medicine; Referring Provider Family Medicine; Visit Provider Family Medicine
DX: R30.0 Dysuria (principal)
CPT/HCPCS: 81003; 81015; 87077; 87086

== ENCOUNTER → 2020-05-27 14:21 | Outpatient (CLI) | payer OTHER, SELFPAY ==
--- NOTE | 2020-05-27 14:23 | DI.CT.S_ITS ---
PROCEDURE: CT KIDNEY URETER BLADDER (KUB) INDICATIONS: left kidney pain TECHNIQUE: Noncontrast 5 mm thick sections acquired from the diaphragms to the symphysis. 5 mm thick coronal and sagittal reformats were then performed. For radiation dose reduction, the following was used: automated exposure control, adjustment of mA and/or kV according to patient size. COMPARISON: [facility], CT, CT KIDNEY URETER BLADDER (KUB), 10/19/2019, 17:13. [facility], CT, CT KIDNEY URETER BLADDER (KUB), 06/07/2018, 9:32. FINDINGS: Image quality: Excellent. Lung bases: Lung bases are clear. Heart size is normal. Urinary system: Both kidneys are normal in size. No kidney stones. No hydronephrosis or perinephric fat stranding. Both ureters appear non-dilated throughout their expected courses. Bladder wall thickness is normal; no calcified bladder stones. Other solid organs: Liver is normal in size. Gallbladder appears normal . Pancreas is normal in contours. Spleen is normal in size. No adrenal nodules. Peritoneum and bowel: Unenhanced bowel loops demonstrate normal wall thickness and caliber. No free fluid or air. Nodes and vessels: No retroperitoneal or mesenteric adenopathy by size criteria. Aorta and inferior vena cava are normal in caliber. Abdominal wall: No ventral hernias. Pelvis: No free pelvic fluid. No inguinal hernias or adenopathy. The bladder is again seen to contain calculi, and the morphology of these bladder calculi has changed with an appearance most consistent with multiple small internal bladder calculi layering posteriorly at the inferior margin of the bladder lumen rather than a single calculus at this time. Bones: No suspicious bony lesions. No vertebral body compression fractures. IMPRESSION: Multiple small calculi are layering at the posterior inferior bladder lumen dependently. For example, if the patient was placed in a prone position during CT scanning it is anticipated that these calculi would freely fall to the anterior border of the bladder lumen. Therefore, these are considered potential nidus of recurrent infections. No urinary tract mass or obstruction is currently seen. Dictated by: Arjun Reyes M.D. on 05/27/2020 at 14:55 Approved by: Arjun Reyes M.D. on 05/27/2020 at 15:39
== END ==
PROVIDERS: PCP Family Medicine; Referring Provider Family Medicine; Visit Provider Family Medicine
DX: N21.0 Calculus in bladder (principal); N20.0 Calculus of kidney
CPT/HCPCS: 74176

== ENCOUNTER → 2020-06-04 17:56 | Outpatient (CLI) | payer OTHER, SELFPAY ==
[2020-06-04 18:49] LABS: Appearance Urine UA SL CLOUDY; Bilirubin Urine UA NEGATIVE (NEGATIVE); Color Urine UA YELLOW; Glucose Urine UA NEGATIVE (Negative); Ketones Urine UA TRACE (NEGATIVE); Leukocyte Esterase Urine UA 2+ (NEGATIVE); Nitrite Urine UA NEGATIVE (Negative); Occult Blood Urine UA 1+ (Negative); Protein Urine UA NEGATIVE (Negative); Specific Gravity Urine UA 1.025 (1.000-1.035); Urobilinogen Urine UA 0.2 E.U./dL (0.2)
[2020-06-04 19:39] LABS: pH Urine UA 5.5 (4.5-8.0)
[2020-06-04 19:40] LABS: Bacteria Urine None Seen
[2020-06-04 19:43] LABS: Culture Indicated Urine Specimen Cultured; RBC Urine 5-10/HPF (0-5/HPF); WBC Urine 30-100/HPF (0-5/HPF)
== END ==
PROVIDERS: PCP Family Medicine; Referring Provider Family Medicine; Visit Provider Family Medicine
DX: R30.0 Dysuria (principal)
CPT/HCPCS: 81003; 81015; 87077; 87086; 87147; 87186

== ENCOUNTER → 2020-06-23 15:46 | Outpatient (CLI) | payer OTHER, SELFPAY ==
[2020-06-23 16:15] LABS: Bilirubin Urine UA NEGATIVE (NEGATIVE); Color Urine UA YELLOW; Glucose Urine UA NEGATIVE (Negative); Ketones Urine UA NEGATIVE (NEGATIVE); Leukocyte Esterase Urine UA 1+ (NEGATIVE); Nitrite Urine UA NEGATIVE (Negative); Occult Blood Urine UA TRACE-LYSED (Negative); Protein Urine UA NEGATIVE (Negative); Urobilinogen Urine UA 0.2 E.U./dL (0.2)
[2020-06-23 16:35] LABS: Appearance Urine UA Slightly Cloudy
[2020-06-23 16:52] LABS: RBC Urine 0-1/HPF (0-5/HPF); Squamous Epithelial Cell Urine 0-1 /HPF (0-5/HPF); WBC Urine 30-100/HPF (0-5/HPF)
[2020-06-23 16:53] LABS: Amorphous Sediment Urine 1+; Bacteria Urine Few (2-10); Culture Indicated Urine Specimen Cultured; Mucus Urine 1+ (Negative)
== END ==
PROVIDERS: PCP Family Medicine; Referring Provider Family Medicine; Visit Provider Family Medicine
DX: R30.0 Dysuria (principal)
CPT/HCPCS: 81003; 81015; 87077; 87086

== ENCOUNTER → 2021-05-03 09:36 | Outpatient (CLI) | payer OTHER, SELFPAY ==
[2021-05-03 11:23] LABS: Add Manual Diff / Slide Review NO; Basophils Absolute Auto 0 /uL (0-100); Basophils Percent Auto 0.9 % (0-2); Eosinophils Absolute Auto 100 /uL (0-450); Hematocrit 41.1 % (36-46); Hemoglobin 13.6 g/dL (12.0-16.0); Lymphocytes Absolute Auto 1800 /uL (1100-4500); Lymphocytes Percent Auto 37.3 % (25-40); Mean Corpuscular HGB Conc 33.1 % (30-36); Mean Corpuscular Hemoglobin 30.8 PG (26-34); Mean Corpuscular Volume 93.2 fL (80-100); Monocytes Absolute Auto 400 /uL (0-900); Neutrophils Absolute Auto 2500 /uL (1500-7000); Neutrophils Percent Auto 51.8 % (50-75); Platelet Count 252 X10^3/uL (150-400); Red Blood Cell Count 4.42 X10^6/uL (4.0-5.2); Red Cell Distribution Width 13.9 % (11.6-14.8); White Blood Cell Count 4.8 X10^3/uL (4.5-11.0)
[2021-05-03 11:56] LABS: Alanine Aminotransferase 16 IU/L (<35); Albumin Globulin Ratio 1.3 (1.0-2.8); Alkaline Phosphatase 51 U/L (38-126); Aspartate Aminotransferase 20 IU/L (14-36); BUN Creatinine Ratio 16.4 (6-22); Bilirubin Total 0.6 mg/dL (0.2-1.3); Blood Urea Nitrogen 10 mg/dL (7-17); Calcium 9.6 mg/dL (8.4-10.2); Carbon Dioxide 31 mmol/L (22-32); Chloride 105 mmol/L (98-107); Cholesterol 234 mg/dL (140-199); Estimated Glomerular Filt Rate > 60.0 mL/min (>60); Glucose 104 mg/dL (80-110); HDL Cholesterol 75 mg/dL (40-60); HEMOLYSIS < 15 (0-50); LDL Cholesterol Calculated 145 mg/dL (<100); Potassium 4.8 mmol/L (3.4-5.1); Sodium 139 mmol/L (137-145); Triglycerides 72 mg/dL (35-150)
[2021-05-03 12:27] LABS: TSH w/ Reflex to FT4 1.03 uIU/mL (0.47-4.68)
== END ==
PROVIDERS: PCP Family Medicine; Referring Provider Family Medicine; Visit Provider Family Medicine
DX: E78.2 Mixed hyperlipidemia (principal)
CPT/HCPCS: 36415; 80053; 80061; 84443; 85025

== ENCOUNTER → 2021-05-04 09:25 | Outpatient (CLI) | payer OTHER, SELFPAY ==
--- NOTE | 2021-05-04 09:25 | DI.RAD.S_ITS ---
PROCEDURE: XR WRIST RT MIN 3V INDICATIONS: Fell on ice - landed on outstretched arm TECHNIQUE: 4 views of the wrist were acquired. COMPARISON: None. FINDINGS: Bones: No fractures or dislocations. There is cortical irregularity and subtle sclerosis in the radial metaphysis. No suspicious bony lesions. Scaphoid view: Scaphoid is intact. Soft tissues: No suspicious soft tissue calcifications. IMPRESSION: 1. No definitive fracture. Cortical irregularity and subtle sclerosis of the radial metaphysis, suggesting sequelae of old or subacute injury. If clinical symptoms persist or clinical suspicion for pathology is high, a repeat examination in 7-10 days, or advanced imaging such as CT or MRI is suggested for further evaluation. Dictated by: Jorge Damon M.D. on 05/04/2021 at 9:47 Approved by: Jorge Damon M.D. on 05/04/2021 at 9:52
== END ==
PROVIDERS: PCP Family Medicine; Referring Provider Physician Assistant; Visit Provider Physician Assistant
DX: M25.531 Pain in right wrist (principal); W00.9XXA Unspecified fall due to ice and snow, initial encounter
CPT/HCPCS: 73110

== ENCOUNTER → 2021-05-12 09:54 | Outpatient (CLI) | payer OTHER, SELFPAY ==
--- NOTE | 2021-05-12 09:55 | DI.RAD.S_ITS ---
PROCEDURE: XR WRIST RT MIN 3V INDICATIONS: continued right wrist pain TECHNIQUE: 4 views of the wrist were acquired. COMPARISON: [facility], CR, XR WRIST RT MIN 3V, 05/04/2021, 9:18. FINDINGS: Bones: No significant interval change in cortical irregularity and mild sclerosis involving the distal radial metaphysis compared to prior examination suggestive of remote injury. No acute fracture seen. Scaphoid view: Intact scaphoid. Soft tissues: No suspicious soft tissue calcifications. IMPRESSION: No change in cortical irregularity and sclerosis involving the distal radial metaphysis, suggesting sequela of prior injury and no definitive acute fracture seen. Dictated by: Alejandro AGARWAL Interpreted: Luis Daniel Jauregui MD on 05/12/2021 at 10:18 Transcribed by: BRETT on 05/12/2021 at 10:19 Approved by: Luis Daniel Jauregui M.D. on 05/12/2021 at 20:06
== END ==
PROVIDERS: PCP Family Medicine; Referring Provider Physician Assistant; Visit Provider Physician Assistant
DX: M25.531 Pain in right wrist (principal)
CPT/HCPCS: 73110

== ENCOUNTER → 2021-08-18 12:47 | Outpatient (CLI) | payer OTHER, SELFPAY | PROVIDERS: PCP Family Medicine; Referring Provider Otolaryngology; Visit Provider Otolaryngology | DX: Z01.810 Encounter for preprocedural cardiovascular examination (principal); E78.00 Pure hypercholesterolemia, unspecified | CPT/HCPCS: 93005; 93010 ==

== ENCOUNTER → 2022-03-01 09:41 | Outpatient (CLI) | payer OTHER, SELFPAY ==
[2022-03-02 10:59] LABS: HSV 2 IGG AB < 0.91 index (0.00-0.90); HSV1IGG 6.26 index (0.00-0.90)
== END ==
PROVIDERS: PCP Family Medicine; Referring Provider Physician Assistant; Visit Provider Physician Assistant
DX: Z20.2 Contact with and (suspected) exposure to infections with a predominantly sexual mode of transmission (principal)
CPT/HCPCS: 36415; 86694; 86695; 86696

== ENCOUNTER → 2022-04-07 13:00 | Outpatient (CLI) | payer OTHER, SELFPAY ==
--- NOTE | 2022-04-07 | DI.MG.S_ITS ---
BILATERAL DIGITAL SCREENING MAMMOGRAM 3D/2D WITH CAD: 04/07/2022 CLINICAL: Routine screening. Comparison is made to exams dated: 12/06/2017 mammogram, 10/10/2012 mammogram, and 04/20/2012 mammogram - [facility]. There are scattered areas of fibroglandular density in both breasts (category b / 25%-50% glandular tissue). Current study was also evaluated with a Computer Aided Detection (CAD) system. No significant masses, calcifications, or other findings are seen in either breast. There has been no significant interval change. IMPRESSION: NEGATIVE There is no mammographic evidence of malignancy. A 1 year screening mammogram is recommended. Based on the Tyrer Cuzick model (a risk assessment model) the patient's lifetime risk is 5.9% and her 10 year risk is 2.5%. According to the ACR, ACS, and NCCN guidelines, an annual breast MRI exam along with mammogram is recommended if the patient's lifetime risk is 20% or greater. This exam was interpreted at Station ID: [id number]. NOTE: For mammograms, a report in lay terms will be sent to the patient. Approximately 15% of breast malignancies will not be visualized mammographically. In the management of a palpable breast mass, a negative mammogram must not discourage biopsy of a clinically suspicious lesion. Electronically Signed By: Carlos turcios/manuela:04/07/2022 17:47:30 letter sent: Normal Exam ACR BI-RADS Category 1: Negative [id number]
== END ==
PROVIDERS: PCP Family Medicine; Referring Provider Family Medicine; Visit Provider Family Medicine
DX: Z12.31 Encounter for screening mammogram for malignant neoplasm of breast (principal)
CPT/HCPCS: 77063; 77067

== ENCOUNTER → 2022-09-13 15:24 | Outpatient (CLI) | payer OTHER, SELFPAY ==
--- NOTE | 2022-09-13 15:25 | DI.RAD.S_ITS ---
PROCEDURE: XR KNEE RT 3V INDICATIONS: rt knee pain medial TECHNIQUE: 3 views of the knee were acquired. COMPARISON: [facility], , XR KNEE RT 3V, 01/24/2020, 10:36. FINDINGS: Bones: No fractures or dislocations. No suspicious bony lesions. Mild medial compartment osteoarthritis. Soft tissues: No joint effusion. No suspicious soft tissue calcifications. IMPRESSION: No osseous lesion. If symptoms and/or clinical suspicion for pathology persists, further assessment with advanced imaging (e.g. CT, MRI or bone scan) should be considered. Mild medial compartment osteoarthritis. Dictated by: Socorro Wagner MD, PhD on 09/13/2022 at 16:18 Approved by: Socorro Wagner MD, PhD on 09/13/2022 at 16:19
[2022-09-16 12:30] LABS: HSV 2 IGG AB < 0.91 index (0.00-0.90); HSV1IGG 4.44 index (0.00-0.90)
== END ==
PROVIDERS: PCP Family Medicine; Referring Provider Family Medicine; Visit Provider Family Medicine
DX: M25.561 Pain in right knee (principal); Z11.3 Encounter for screening for infections with a predominantly sexual mode of transmission; Z20.2 Contact with and (suspected) exposure to infections with a predominantly sexual mode of transmission
CPT/HCPCS: 36415; 73562; 86695; 86696

== ENCOUNTER → 2023-05-26 10:22 | Outpatient (CLI) | payer OTHER, SELFPAY ==
[2023-05-26 11:20] LABS: Add Manual Diff / Slide Review NO; Basophils Absolute Auto 100 /uL (0-100); Basophils Percent Auto 1.1 % (0-2); Eosinophils Absolute Auto 100 /uL (0-450); Eosinophils Percent Auto 1.3 % (2-4); Hematocrit 42.1 % (36-46); Hemoglobin 13.9 g/dL (12.0-16.0); Lymphocytes Absolute Auto 2000 /uL (1100-4500); Lymphocytes Percent Auto 41.2 % (25-40); Mean Corpuscular Hemoglobin 30.8 PG (26-34); Mean Corpuscular Volume 93.4 fL (80-100); Monocytes Absolute Auto 400 /uL (0-900); Monocytes Percent Auto 7.3 % (3-14); Neutrophils Absolute Auto 2300 /uL (1500-7000); Neutrophils Percent Auto 49.1 % (50-75); Platelet Count 266 X10^3/uL (150-400); Red Blood Cell Count 4.51 X10^6/uL (4.0-5.2); Red Cell Distribution Width 13.8 % (11.6-14.8); White Blood Cell Count 4.8 X10^3/uL (4.5-11.0)
[2023-05-26 11:32] LABS: Alanine Aminotransferase 20 IU/L (<35); Albumin 4.1 g/dL (3.5-5.0); Albumin Globulin Ratio 1.3 (1.0-2.8); Alkaline Phosphatase 55 U/L (38-126); Aspartate Aminotransferase 24 IU/L (14-36); BUN Creatinine Ratio 23.8 (6-22); Bilirubin Total 0.8 mg/dL (0.2-1.3); Blood Urea Nitrogen 15 mg/dL (7-17); Calcium 9.4 mg/dL (8.4-10.2); Carbon Dioxide 28 mmol/L (22-32); Chloride 103 mmol/L (98-107); Cholesterol 224 mg/dL (140-199); Estimated Glomerular Filt Rate > 60 mL/min (>60); Globulin 3.2 g/dL (1.7-4.1); Glucose 106 mg/dL (80-110); HDL Cholesterol 62 mg/dL (40-60); HEMOLYSIS 23 (0-50); LDL Cholesterol Calculated 142 mg/dL (<100); Potassium 4.4 mmol/L (3.4-5.1); Sodium 138 mmol/L (137-145); Total Protein 7.3 g/dL (6.3-8.2); Triglycerides 98 mg/dL (35-150)
[2023-05-26 12:00] LABS: TSH w/ Reflex to FT4 1.02 uIU/mL (0.47-4.68)
== END ==
PROVIDERS: PCP Family Medicine; Referring Provider Family Medicine; Visit Provider Family Medicine
DX: E78.2 Mixed hyperlipidemia (principal)
CPT/HCPCS: 36415; 80053; 80061; 84443; 85025

== ENCOUNTER → 2023-11-30 10:31 | Outpatient (CLI) | payer OTHER, SELFPAY ==
--- NOTE | 2023-11-30 10:32 | DI.RAD.S_ITS ---
PROCEDURE: XR ANKLE RT MIN 3V INDICATIONS: Pain right ankle after injury 1 week ago - sprain vs fx TECHNIQUE: 3 views of the ankle were acquired. COMPARISON: None. FINDINGS: Bones: No fractures or dislocations. Ankle mortise is normally aligned. No suspicious bony lesions. Soft tissues: No tibiotalar joint effusion. Achilles tendon appears normal. IMPRESSION: No acute bony abnormality or significant effusion. Approved by: Hira Canela M.D. on 11/30/2023 at 20:30
== END ==
PROVIDERS: PCP Family Medicine; Referring Provider Physician Assistant; Visit Provider Physician Assistant
DX: S93.409A Sprain of unspecified ligament of unspecified ankle, initial encounter (principal); M25.571 Pain in right ankle and joints of right foot; X58.XXXA Exposure to other specified factors, initial encounter
CPT/HCPCS: 73610

== ENCOUNTER → 2024-04-22 07:41 | Outpatient (CLI) | payer MEDICARE, OTHER, SELFPAY ==
--- NOTE | 2024-04-22 09:03 | DI.MG.S_ITS ---
BILATERAL DIGITAL SCREENING MAMMOGRAM 3D/2D WITH CAD: 04/22/2024 CLINICAL: Routine screening. Comparison is made to exams dated: 04/07/2022 mammogram, 01/04/2018 mammogram, 12/06/2017 mammogram, and 10/10/2012 mammogram - [facility]. There are scattered areas of fibroglandular density (category b / 25%-50% glandular tissue). Current study was also evaluated with a Computer Aided Detection (CAD) system. No significant masses, calcifications, or other findings are seen in either breast. There has been no significant interval change. IMPRESSION: NEGATIVE There is no mammographic evidence of malignancy. A 1 year screening mammogram is recommended. Based on the Tyrer Cuzick model (a risk assessment model) the patient's lifetime risk is 5.3% and her 10 year risk is 2.5%. According to the ACR, ACS, and NCCN guidelines, an annual breast MRI exam along with mammogram is recommended if the patient's lifetime risk is 20% or greater. This exam was interpreted at Station ID: [id number]. NOTE: For mammograms, a report in lay terms will be sent to the patient. Approximately 15% of breast malignancies will not be visualized mammographically. In the management of a palpable breast mass, a negative mammogram must not discourage biopsy of a clinically suspicious lesion. Electronically Signed By: Carlos turcios/manuela:04/22/2024 13:26:39 letter sent: Normal Exam ACR BI-RADS Category 1: Negative
== END ==
PROVIDERS: PCP Family Medicine; Referring Provider Family Medicine; Visit Provider Family Medicine
DX: Z12.31 Encounter for screening mammogram for malignant neoplasm of breast (principal)
CPT/HCPCS: 77063; 77067

== ENCOUNTER → 2024-09-12 08:57 | Outpatient (CLI) | payer MEDICARE, OTHER, SELFPAY ==
[2024-09-12 10:16] LABS: Add Manual Diff / Slide Review NO; Basophils Absolute Auto 0 /uL (0-100); Eosinophils Absolute Auto 100 /uL (0-450); Eosinophils Percent Auto 1.8 % (2-4); Hematocrit 41.8 % (36-46); Hemoglobin 13.7 g/dL (12.0-16.0); Lymphocytes Absolute Auto 1500 /uL (1100-4500); Lymphocytes Percent Auto 32.7 % (25-40); Mean Corpuscular HGB Conc 32.8 % (30-36); Mean Corpuscular Hemoglobin 31.4 PG (26-34); Mean Corpuscular Volume 95.9 fL (80-100); Monocytes Absolute Auto 400 /uL (0-900); Neutrophils Absolute Auto 2700 /uL (1500-7000); Neutrophils Percent Auto 56.5 % (50-75); Platelet Count 248 X10^3/uL (150-400); Red Blood Cell Count 4.36 X10^6/uL (4.0-5.2); Red Cell Distribution Width 14.2 % (11.6-14.8); White Blood Cell Count 4.7 X10^3/uL (4.5-11.0)
[2024-09-12 10:46] LABS: Alanine Aminotransferase 20 IU/L (<35); Albumin 4.2 g/dL (3.5-5.0); Albumin Globulin Ratio 1.7 (1.0-2.8); Alkaline Phosphatase 64 U/L (38-126); Aspartate Aminotransferase 25 IU/L (14-36); BUN Creatinine Ratio 18.3 (6-22); Blood Urea Nitrogen 13 mg/dL (7-17); Calcium 9.4 mg/dL (8.4-10.2); Carbon Dioxide 28 mmol/L (22-32); Chloride 105 mmol/L (98-107); Cholesterol 210 mg/dL (140-199); Estimated Glomerular Filt Rate > 60 mL/min (>60); Globulin 2.5 g/dL (1.7-4.1); Glucose 100 mg/dL (70-99); HDL Cholesterol 75 mg/dL (40-60); HEMOLYSIS < 15 (0-50); LDL Cholesterol Calculated 118 mg/dL (<100); Potassium 5.1 mmol/L (3.4-5.1); Sodium 139 mmol/L (137-145); Total Protein 6.7 g/dL (6.3-8.2); Triglycerides 83 mg/dL (35-150)
[2024-09-12 11:13] LABS: TSH w/ Reflex to FT4 1.31 uIU/mL (0.47-4.68)
[2024-09-12 11:32] LABS: Vitamin B12 238 pg/mL (239-931)
[2024-09-12 11:39] LABS: Clostridium Difficile Tox PCR Negative for C. diff (Negative)
== END ==
PROVIDERS: PCP Family Medicine; Referring Provider Physician Assistant; Visit Provider Physician Assistant
DX: E78.2 Mixed hyperlipidemia (principal); R63.4 Abnormal weight loss; R19.7 Diarrhea, unspecified
CPT/HCPCS: 36415; 80053; 80061; 82607; 83993; 84443; 85025; 87493

== ENCOUNTER 2024-11-29 08:22 | Day surgery (SDC) | payer MEDICARE, OTHER, SELFPAY ==
--- NOTE | 2024-11-29 | PATH_ITS ---
[facility] Accession Number: [id number] No. of containers..06 Tissue . 01 Material submitted: . PART A: duodenum - DUODENUM PART B: stomach - ANTRUM PART C: small bowel - ILEUM, TERMINAL RANDOM PART D: colon - COLON, RIGHT RANDOM PART E: colon - COLON, LEFT RANDOM PART F: colon - COLON, TRANSVERSE . 01 Diagnosis: Part A: DUODENUM: Duodenal mucosa with no diagnostic alterations. No active inflammation and no evidence of celiac disease. . Part B: ANTRUM: Gastric mucosa with mild chronic inflammation. No Helicobacter organisms identified. No intestinal metaplasia, dysplasia, or malignancy identified. . Part C: ILEUM, TERMINAL RANDOM: Ileal mucosa with no diagnostic alterations. No active inflammation, granulomas, or dysplasia identified. . Part D: COLON, RIGHT RANDOM: Colonic mucosa with no diagnostic alterations. No active inflammation, granulomas, dysplasia, or malignancy identified. No evidence of colitis. . Part E: COLON, LEFT RANDOM: Colonic mucosa with no diagnostic alterations. No active inflammation, granulomas, dysplasia, or malignancy identified. No evidence of colitis. . Part F: COLON, TRANSVERSE: Colonic mucosa with no diagnostic alterations. No active inflammation, granulomas, dysplasia, or malignancy identified. No evidence of colitis. [facility] 12/10/2024 1303 Local . 01 Electronically signed: . Nitin Shea MD, Pathologist NPI- [id number] . 01 Gross description: . A. Received in formalin with two identifiers and duodenum biopsies, are two hernandez soft tissue fragments ranging from 0.3 to 0.4 cm in greatest dimension, entirely submitted in A1. . B. Received in formalin with two identifiers and antrum biopsies, are three hernandez soft tissue fragments ranging from 0.3 to 0.6 cm in greatest dimension, entirely submitted in B1. . C. Received in formalin with two identifiers and terminal ileum random biopsy, are two hernandez soft tissue fragments ranging from 0.2 to 0.6 cm in greatest dimension, entirely submitted in C1. . D. Received in formalin with two identifiers and random right colon biopsies, are two hernandez soft tissue fragments ranging from 0.2 to 0.3 cm in greatest dimension, entirely submitted in D1. . E. Received in formalin with two identifiers and random left colon biopsies, are two hernandez soft tissue fragments ranging from 0.3 to 0.3 cm in greatest dimension, entirely submitted in E1. . F. Received in formalin with two identifiers and transverse colon biopsies, are two hernandez soft tissue fragments ranging from 0.3 to 0.4 cm in greatest dimension, entirely submitted in F1. ([id number]) /MRV 12/10/2024 1303 Local . 01 Microscopic: . Part B: ANTRUM: An immunohistochemical stain was performed to evaluate for Helicobacter organisms and is negative. The control stains appropriately. * This test was developed and the performance characteristics were validated by [facility]. It has not been cleared or approved by the Food and Drug Administration. . 01 Pathologist provided ICD-10: K29.50, R19.7 . 01 CPT . 497291, 128638, 531165, 343134, 287316, 857607, G18457 Specimen Comment: A courtesy copy of this report has been sent to [phone] Performed at: [address] [address], [place], [place] [id number] MD Nitin Shea MD Phone: [phone]
[2024-11-29] MEDS: LACTATED RINGERS 1,000 ML 42 ML IV (08:43)
[2024-11-29 08:44] VITALS: BP 150/71; PULSE 66; RESP 16; TEMP 36.3; O2SAT 99
--- NOTE | 2024-11-29 09:24 | PM.HP.IH.1 ---
History of Present Illness History of Present Illness Date Patient Seen: 11/29/24 Time Patient Seen: 09:24 Chief complaint: EGD & Colonoscopy w/poss bx's Narrative: Graciela is a 64-year-old chronic diarrhea. See the office note from last month for details. Since the last time I saw her she has observed that her symptoms seemed to correlate with eating yogurt for breakfast. [facility] Medical History Right knee pain Cystocele Right wrist pain Sprain of wrist, right Fall from slipping on ice Mixed hyperlipidemia GERD (gastroesophageal reflux disease) (2013) Frequent UTI (2009) Seizures Malaria (1971) Pelvic relaxation Chlamydia (1980) Chicken pox Measles Mumps Rubella Chronic headaches Migraines RLS (restless legs syndrome) Kidney stones Hayfever Bladder stones Calculus of urinary bladder (03/13/17) Surgical History Anesthesia History of bladder surgery (2011) History of lithotripsy (2007) Status post appendectomy (1989) Status post breast reduction (1991) Status post hysterectomy with oophorectomy (~2008) Family History Father Heart disease Mental health problem Mother Age: 94 Osteoporosis COPD (chronic obstructive pulmonary disease) Arthritis Sister Age: 72 Heart disease Mental health disorder Grandmother Lung cancer Social History marital status: Smoking Status: Never smoker alcohol intake: current substance use type: does not use Meds Home Medications and Allergies Home Medications ?Medication ?Instructions ?Recorded ?Confirmed ?Type estradiol 0.01% (0.1 mg/gram) 1 g vaginal DAILY #42.5 grams 11/20/23 10/25/24 Rx vaginal cream azelastine 137 mcg (0.1 %) nasal intranasal 11/30/23 10/25/24 History spray cyclosporine 0.05 % eye drops in a drp EYE-BOTH 11/30/23 10/25/24 History dropperette sodium,potassium,mag sulfates 17.5 See Rx Instructions PO .COMPLEX 11/06/24 Rx gram-3.13 gram-1.6 gram oral soln #354 mL (Suprep Bowel Prep Kit) Allergies Allergy/AdvReac Type Severity Reaction Status Date / Time azithromycin (AZITHROMYCIN) Allergy Mild STOMACH Verified 11/29/24 08:44 PAIN hydromorphone (HYDROMORPHONE) Allergy Mild N/V Verified 11/29/24 08:44 meperidine (MEPERIDINE) Allergy Mild N/V Verified 11/29/24 08:44 nitrofurantoin (From Allergy Mild HEADACHE Verified 11/29/24 08:44 MACROBID) FLU LIKE SYMPTOMS omeprazole (OMEPRAZOLE) Allergy Mild DIARRHEA Verified 11/29/24 08:44 Milk Containing Products AdvReac Mild hives Verified 11/29/24 08:44 (Dairy) Exam Vital Signs (past 8 hours): - 11/29/24 08:44 Temperature 97.4 F L Pulse Rate 66 Respiratory Rate 16 Blood Pressure 150/71 H Pulse Oximetry 99 Const General: healthy appearing Assessment & Plan Assessment and plan (1) Chronic diarrhea: Status: Acute Plan EGD and colonoscopy Time-Based Coding :: [TOTAL MINUTES] spent with patient and on the chart (including review of chart, obtaining history, exam, reviewing outside data, placing orders, documenting exam and treatment plan, and counseling patient) on [DATE]. [employer] Document charge(s): No
[2024-11-29 10:12] VITALS: BP 107/54; PULSE 64; RESP 16; TEMP 36.2; O2SAT 98
[2024-11-29 10:17] VITALS: BP 112/66; PULSE 72; RESP 16; O2SAT 97
--- NOTE | 2024-11-29 10:17 | PM.OP.EC ---
Operative Date/Time/Diagnoses Date of procedure: 11/29/24 Time of procedure: 10:17 Pre-op diagnosis: Diarrhea Post-op diagnosis: same Procedure & Clinicians Study performed: EGD and colonoscopy Same procedure(s) as scheduled: Yes Surgeon: Temo Patton Anesthesia Type: MAC +/- Procedure Notes Procedure in detail: Surgeon: Temo Patton MD Anesthesia: Deysi Galeana CRNA Procedure in detail: A timeout was performed. A bite blocked was placed and monitors were attached to the patient. The patient was positioned in the left lateral decubitus position. Sedation was administered. Once the patient was sedated the endoscope was inserted through the bite block and passed through the esophagus and stomach and into the duodenum. No gross abnormalities were identified. Random biopsies were taken from the duodenum with cold forceps. We then withdrew the scope into the stomach. No gross abnormalities were identified. Random biopsies were taken from the antrum with cold forceps. The endoscope was retroflexed and no hiatal hernia was seen. The endoscope was straightned and withdrawn into the esophagus. No abnormalities were found within the esophagus. EGD findings: Grossly normal EGD Next we repositioned the patient for a colonoscopy. A digital rectal exam was performed and was normal. The colonoscope was inserted and advanced to the cecum. The appendiceal orifice was identified and photographed. The scope was slowly withdrawn over greater than 6 minutes. Terminal ileum was intubated and no abnormalities were seen. Random biopsies were taken from the terminal ileal mucosa with cold forceps. Random biopsies were taken from the right colon, transverse colon and left colon with cold forceps. A few scattered diverticula were noted in the sigmoid colon. The scope was retroflexed in the rectum and no other abnormalities were found. Colonoscopy findings: A few scattered sigmoid diverticula but otherwise grossly normal colon and terminal ileum Total procedural EBL: 5 mL Scope withdrawal time: 11 minutes Sedation minutes: 31 minutes Post-procedure Disposition: PACU
[2024-11-29 10:22] VITALS: BP 141/66; PULSE 61; RESP 14; O2SAT 99
[2024-11-29 10:26] VITALS: BP 154/63; PULSE 63; RESP 16; TEMP 36.2; O2SAT 98
== END 2024-11-29 10:39 | disposition home or self-care (01) ==
PROVIDERS: PCP Family Medicine; Referring Provider Family Medicine; Visit Provider Surgery
PROC: 0DJ08ZZ Inspection of Upper Intestinal Tract, Via Natural or Artificial Opening Endoscopic (ICD-10-PCS; CPT 45380; principal; 2024-11-29 09:15)
PROC: 0DJD8ZZ Inspection of Lower Intestinal Tract, Via Natural or Artificial Opening Endoscopic (ICD-10-PCS; CPT 45378; 2024-11-29 09:15)
DX: R19.7 Diarrhea, unspecified (principal); K57.30 Diverticulosis of large intestine without perforation or abscess without bleeding; K29.50 Unspecified chronic gastritis without bleeding
CPT/HCPCS: 45380; 43239; J2704